=== PATIENT | male | born 1960 | race Caucasian/White ===

== ENCOUNTER 2016-09-02 15:03 | Day surgery (SDC) | payer OTHER ==
[2016-08-24 12:11] LABS: % IMMATURE GRANULYOCYTES 0.4 % (0.0-1.1); ABSOLUTE IMMATURE GRANULOCYTES 0.02 10^3/uL (0.00-0.10); ADD DIFF? NO; ADD MORPH? NO; ADD SCAN? NO; ATYPICAL LYMPHOCYTE FLAG 10 (0-99); FRAGMENT RBC FLAG 0 (0-99); HEMATOCRIT 43.7 % (40.0-51.0); LEFT SHIFT FLG 0 (0-99); LIPEMIA HEMOLYSIS FLAG 90 (0-99); MEAN CELL HEMOGLOBIN 30.8 pg (27.9-34.1); MEAN CELL HEMOGLOBIN CONCENTR. 34.3 g/dL (32.4-36.7); MEAN CELL VOLUME 89.7 fL (81.5-99.8); MEAN PLATELET VOLUME 9.9 fL (8.7-11.7); PLATELET CLUMPS FLAG 0 (0-99); PLATELET COUNT 278 10^3/uL (150-400); RED BLOOD CELL COUNT 4.87 10^6/uL (4.40-6.38)
--- NOTE | 2016-09-02 10:30 | DX ---
Intraoperative fluoroscopy. 09/02/2016 History: Cervical spine surgery. Discussion: 7.4 seconds of fluoroscopy time were utilized by Dr. Srikanth Prescott during cervical spine janet yonathan. Radiographs obtained during the procedure demonstrate performance of diskectomy and interbody fusion with ventral plate placement at C3-C4, anatomic alignment. Prior fusion of C4-C6.. Impression: Intraoperative fluoroscopy during cervical spine surgery.
[2016-09-02 11:38] VITALS: BP 118/82; RESP 9; O2SAT 91
--- NOTE | 2016-09-02 12:25 | GOP ---
[f rep st] OPERATIVE REPORT DATE OF OPERATION: 09/02/2016 SURGEON: Adolph Prescott MD NEUROSURGEON: Adolph Prescott MD EMULSION COATER: ALBERT Canseco. PREOPERATIVE DIAGNOSIS: 1. 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 2. Prior cervical fusion at C4-C5 and C5-C6. POSTOPERATIVE DIAGNOSIS: 1. 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 2. Prior cervical fusion at C4-C5 and C5-C6. PROCEDURE PERFORMED: 1. Anterior removal of instrumentation at C4, anterior cervical diskectomy with decompression and arthrodesis C3-C4 (11225). 2. Placement of nonanchored biomechanical intervertebral device C3-C4 (14336). 3. Same incision bone graft harvest, anterior cervical instrumentation C3-C4 ( 78334). 4. Microscope, fluoroscopy. INSTRUMENTATION: Lanx anterior cervical plating system, generation 1. The screws at C4 were removed and the plating placed at this time was a [employer]onic ZEVO plate, a 19 mm plate with 3.5 x 15 mm screws and a PEEK intervertebral device. It was an anatomic PTC cage. FINDINGS: ESTIMATED BLOOD LOSS: 25 cc. INDICATIONS: The patient is a 56-year-old, who about almost a decade ago underwent successful anterior cervical diskectomy and fusion at C4-C5 and C5-C6 because of severe spinal stenosis and cord compression. He did relatively well from this and has now over the last several months developed increasing discomfort and MRI demonstrated adjacent segment disease with severe stenosis at C3-4 above the prior surgery. There was no evidence of complication from this prior surgery and he appeared to be fused on plain images, but no CT scan was done, we discussed this with him. He understood there was a tiny chance that he actually has a stable pseudoarthrosis at the site of his prior surgery, but his symptoms almost certainly were related to adjacent segment disease, and I suggested adjacent segment surgery. He was evaluated by ENT and had no issues with his vocal cords. He also had been suffering an unknown possible cognitive decline. The etiology of which was unclear. This is unrelated to his cervical problems and we thought that cervical surgery might help him be more comfortable. The risk of further adjacent segment disease, pseudoarthrosis , soft gel injury, carotid injury, recurrent laryngeal nerve injury and dysphagia were all discussed. He understood these risks. He wanted to proceed. DESCRIPTION OF PROCEDURE: Patient was taken to the operating room and placed in the supine position. General anesthesia was begun. A large longitudinal shoulder roll was placed. His arms were tucked at his side. His neck was kept neutral. Occiput was extended. He was sterilely prepped and draped. We made a left-sided transverse incision in the rostral neck crease on the left-hand side. The subcutaneous tissue was dissected using Bovie cautery through the platysma, and a combination of sharp and blunt dissection was made medial to the sternocleidomastoid and lateral to the strap muscles, down to the prevertebral space. The prior plate was localized. We removed the top 2 screws from the plate without difficulty. There was no loosening of the plate whatsoever. There was some bony overgrowth over the rostral aspect of the plate itself. We placed a distraction pin in the prior screw hole and then a distraction pin at C3-C4, distracted at C3-C4. We dissected the longus colli muscles off the spine at C3-C4 and introduced the scope and under the scope we removed the C3-4 disk and the cartilaginous endplates. We drilled and harvested subchondral bone for autologous grafting purposes, opened the posterior longitudinal ligament and decompressed the thecal sac and the neural foramina bilaterally. Decompression was obtained. We chose a 7 mm anatomic PEEK cage, with titanium coating and it was packed with bony autograft and inserted at C3-C4. A nice fit was obtained. We then removed our distraction pins, drilled off some of the bony osteophytes rostral to the prior plate and our new plate was going to fit nicely underneath the old plate with hyper angulated screws as designed by the company. We placed a single screw at C4, a single screw at C3 and shot an x -ray. We were happy with all of the implants. We placed the 2 remaining screws and locked them according to company specification. We achieved meticulous hemostasis. We placed Marcaine with epinephrine in the prevertebral space and then closed the incision in multiple layers using Vicryl sutures. A running PDS was placed in the skin itself. The patient was reversed from anesthesia, extubated, and transferred to the recovery room in stable condition. There were no complications. COMPLICATIONS: None. /[id number]/MODL MTDD
[~2016-09-02 15:03] MED LIST: ACETAMINOPHEN 325 MG TAB ONE; ACETAMINOPHEN 325 MG TAB PO ONE; BACITRACIN 50,000 UNITS/10 ML SYR IRR ONE; BUPIVACAINE/EPI 0.25% 30 ML SDV ONE; DIAZEPAM 10 MG/2 ML SYR ONE; GLYCOPYRROLATE 0.2 MG/1 ML VIAL ONE; LIDOCAINE 1% 5 ML SDV ID PRN; LIDOCAINE 1% 5 ML SDV ONE; LIDOCAINE 2% 5 ML SDV ONE; LR 1,000 ML IV ONE; MIDAZOLAM 2 MG/2 ML VIAL ONE; ONDANSETRON 4 MG/2 ML VIAL ONE; PROPOFOL 200 MG/20 ML VIAL ONE; PROPOFOL/EMULSION 500 MG/50 ML BOTTLE IV ONE; ROCURONIUM 50 MG/5 ML VIAL ONE; THROMBIN (RECOMBINANT) 5,000 UNIT VIAL TP ONE; ceFAZolin 2 GM/DEXTROSE 100 ML IV ONE; fentaNYL 100 MCG/2 ML INJ ONE
== END 2016-09-02 15:05 | disposition home or self-care (01) ==
LOC: FSGY 15:03
PROVIDERS: ATTEND Neurological Surgery
DX: M47.12 Other spondylosis with myelopathy, cervical region (principal); Z98.1 Arthrodesis status
CPT/HCPCS: C1713; J0690; J2250; J2405; J2704; J3010

== ENCOUNTER → 2016-10-27 | Outpatient (CLI) | payer OTHER | LOC: FIMAGING 09:54 | PROVIDERS: ATTEND Physician Assistant | DX: Z09 Encounter for follow-up examination after completed treatment for conditions other than malignant neoplasm (principal); M47.12 Other spondylosis with myelopathy, cervical region; M48.02 Spinal stenosis, cervical region; Z98.1 Arthrodesis status ==

== ENCOUNTER → 2017-02-07 | Outpatient (CLI) | payer OTHER | LOC: FIMAGING 10:58 | PROVIDERS: ATTEND Nurse Practitioner | DX: Z09 Encounter for follow-up examination after completed treatment for conditions other than malignant neoplasm (principal); Z98.1 Arthrodesis status; M50.323 Other cervical disc degeneration at C6-C7 level; M48.02 Spinal stenosis, cervical region ==

== ENCOUNTER → 2017-08-09 | Outpatient (CLI) | payer OTHER | LOC: FIMAGING 07:34 | PROVIDERS: ATTEND Physician Assistant | DX: Z98.1 Arthrodesis status (principal) ==

== ENCOUNTER → 2018-06-20 | Outpatient (CLI) | payer OTHER | LOC: FIMAGING 14:51 | PROVIDERS: ATTEND Physician Assistant | DX: Z09 Encounter for follow-up examination after completed treatment for conditions other than malignant neoplasm (principal); Z98.1 Arthrodesis status; M50.323 Other cervical disc degeneration at C6-C7 level ==

== ENCOUNTER 2018-06-29 13:01 | Day surgery (SDC) | payer OTHER ==
[~2018-06-29 13:01] MED LIST changes: -ACETAMINOPHEN 325 MG TAB ONE; -ACETAMINOPHEN 325 MG TAB PO ONE; -BACITRACIN 50,000 UNITS/10 ML SYR IRR ONE; -BUPIVACAINE/EPI 0.25% 30 ML SDV ONE; -DIAZEPAM 10 MG/2 ML SYR ONE; -GLYCOPYRROLATE 0.2 MG/1 ML VIAL ONE; -LIDOCAINE 1% 5 ML SDV ID PRN; -LIDOCAINE 1% 5 ML SDV ONE; -LIDOCAINE 2% 5 ML SDV ONE; -LR 1,000 ML IV ONE; -MIDAZOLAM 2 MG/2 ML VIAL ONE; -ONDANSETRON 4 MG/2 ML VIAL ONE; -PROPOFOL 200 MG/20 ML VIAL ONE; -PROPOFOL/EMULSION 500 MG/50 ML BOTTLE IV ONE; -ROCURONIUM 50 MG/5 ML VIAL ONE; +ROPIVACAINE 0.2% 80 MG, EPINEPHrine 0.2 MG, KETOROLAC TROMETHAMINE 30 MG, morphINE 10 M... IU ONE; -THROMBIN (RECOMBINANT) 5,000 UNIT VIAL TP ONE; -ceFAZolin 2 GM/DEXTROSE 100 ML IV ONE; -fentaNYL 100 MCG/2 ML INJ ONE
[2018-06-29] MEDS ORDERED: LR 1,000 ML IV SCH (13:09)
[2018-06-29] MEDS ORDERED: ACETAMINOPHEN 500 MG TAB PO ONE (13:09)
[2018-06-29] MEDS ORDERED: ceFAZolin 2 GM/DEXTROSE 100 ML IV ONE (13:09)
[2018-06-29] MEDS ORDERED: LR 1,000 ML IV ONE (13:11)
[2018-06-29] MEDS ORDERED: BUPIVACAINE/EPI 0.25% 30 ML SDV ONE (13:44)
[2018-06-29] MEDS ORDERED: EPINEPHrine 30 MG/30 ML MDV (0.1 MG/0.1 ML) ONE (13:44)
--- NOTE | 2018-06-29 14:30 | PDGENHP ---
History and Physical - Chief Complaint left shoulder pain for over a year. - History of Present Illness Pain is present with overhead activities and at night. History Information - Allergies/Home Medication List Allergies/Adverse Reactions: No Known Allergies Allergy (Verified 06/28/18 15:36) Home Medications: Fluoxetine HCl [Prozac 40 mg] 08/06/16 [Last Taken 06/29/18] Ibuprofen [Motrin (*)] 08/06/16 [Last Taken 06/22/18] Pramipexole Di-HCl [Mirapex 0.125 mg (*)] 08/06/16 [Last Taken 06/29/18 0900] Herbals/Supplements -Info Only 06/28/18 [Last Taken 06/28/18] I have personally reviewed and updated: family history, medical history, social history, surgical history - Surgical History Additional surgical history: cervical spine fusion - Social History Smoking Status: Never smoked Alcohol Use: Occasionally Drug Use: None Review of Systems Review of Systems: ROS: 10pt was reviewed & negative except for what was stated in HPI & below Constitutional: Reports: no symptoms Cardiac: Reports: no symptoms Respiratory: Reports: no symptoms Gastrointestinal: Reports: no symptoms Genitourinary: Reports: no symptoms Muscolosketal: Reports: joint pain, muscle pain Skin: Reports: no symptoms Physical Exam Physical Exam: Temp Pulse Resp BP Pulse Ox 36.7 C 51 L 16 113/76 96 06/29/18 13:32 06/29/18 13:32 06/29/18 13:32 06/29/18 13:32 06/29/18 13:32 Constitutional: no apparent distress Eyes: PERRL Ears, Nose, Mouth, Throat: moist mucous membranes Cardiovascular: regular rate and rhythym, no murmur, rub, or gallop Peripheral Pulses: 2+: dorsalis-pedis (R), dorsalis-pedis (L) Respiratory: no respiratory distress, clear to auscultation Gastrointestinal: normoactive bowel sounds, soft, non-tender abdomen Genitourinary: no bladder fullness Skin: warm, normal color, no rashes or abrasions Musculoskeletal: joint tenderness, pain with ROM Neurologic: AAOx3 Psychiatric: interacting appropriately, not anxious Lymph, Heme, Immunologic: no cervical LAD Assessment & Plan Assessment: left shoulder impingement, AC joint arthritis. Plan: Left shoulder arthroscopy, SAD, DCR, rotator cuff repair, possibly open.
[2018-06-29] MEDS ORDERED: MIDAZOLAM 2 MG/2 ML VIAL ONE (14:47)
[2018-06-29] MEDS ORDERED: MIDAZOLAM 2 MG/2 ML VIAL IVP ONE (14:48)
[2018-06-29] MEDS ORDERED: LR 500 ML IV PRN (14:49)
[2018-06-29] MEDS ORDERED: fentaNYL 100 MCG/2 ML INJ IVP PRN (14:49)
[2018-06-29] MEDS ORDERED: HYDROmorphONE/DILAUDID 2 MG/ML INJ IVP PRN (14:49)
[2018-06-29] MEDS ORDERED: ONDANSETRON 4 MG/2 ML VIAL IVP PRN (14:49)
[2018-06-29] MEDS ORDERED: PROMETHAZINE HCL 25 MG/ML INJ IVP PRN (14:49)
[2018-06-29] MEDS ORDERED: ALBUTEROL 3 ML DEYVIAL IH PRN (14:49)
[2018-06-29] MEDS ORDERED: NS 500 ML IV PRN (14:49)
[2018-06-29] MEDS ORDERED: DEXAMETHASONE 4 MG/ML VIAL IVP PRN (14:49)
[2018-06-29] MEDS ORDERED: NALOXONE HCL 0.4 MG/ML INJ IVP PRN (14:49)
--- NOTE | 2018-06-29 14:49 | PDANEPAE ---
ANE History of Present Illness here for L shoulder RTC ANE Past Medical History - Cardiovascular History Hx Hypertension: No Hx Arrhythmias: No Hx Chest Pain: No Hx Coronary Artery / Peripheral Vascular Disease: No Hx CHF / Valvular Disease: No Hx Palpitations: No - Pulmonary History Hx COPD: No Hx Asthma/Reactive Airway Disease: No Hx Recent Upper Respiratory Infection: No Hx Oxygen in Use at Home: No Hx Sleep Apnea: No Sleep Apnea Screening Result - Last Documented: Negative - Neurologic History Hx Cerebrovascular Accident: No Hx Seizures: No Hx Dementia: No Neurologic History Comment: HX OF CERVICAL FUSIONS X2 - Endocrine History Hx Diabetes: No - Renal History Hx Renal Disorders: No - Liver History Hx Hepatic Disorders: No - Neurological & Psychiatric Hx Hx Neurological and Psychiatric Disorders: Yes Neurological / Psychiatric History Comment: DEPRESSION - Cancer History Hx Cancer: No - Congenital Disorder History Hx Congenital Disorders: No - GI History Hx Gastrointestinal Disorders: Yes Gastrointestinal History Comment: OCC REFLUX R/T WEIGHT - Other Health History Other Health History: WEARS GLASSES - Chronic Pain History Chronic Pain: Yes (LEFT SHOULDER, NECK) - Surgical History Prior Surgeries: 09/02/16 C3-4 ADCF WITH ROSEMARY. CERVICAL FUSION 2006. TONSILLECTOMY CHILD ANE Review of Systems Review of systems is: negative Review of Systems: - Exercise capacity Exercise capacity: >=4 METS METS (RN): 6 METS ANE Patient History - Allergies Allergies/Adverse Reactions: No Known Allergies Allergy (Verified 06/28/18 15:36) - Home Medications Home medications: home medication list seen and reviewed Home Medications: Fluoxetine HCl [Prozac 40 mg] 08/06/16 [Last Taken 06/29/18] Ibuprofen [Motrin (*)] 08/06/16 [Last Taken 06/22/18] Pramipexole Di-HCl [Mirapex 0.125 mg (*)] 08/06/16 [Last Taken 06/29/18 0900] Herbals/Supplements -Info Only 06/28/18 [Last Taken 06/28/18] - NPO status NPO Status: no food or drink >8 hours NPO Since - Liquids (Date): 06/29/18 NPO Since - Liquids (Time): 05:30 NPO Since - Solids (Date): 06/29/18 NPO Since - Solids (Time): 05:30 - Smoking Hx Smoking Status: Never smoked - Alcohol Use Alcohol Use: Occasionally - Family Anes Hx Family Hx Anesthesia Complications: NONE ANE Labs/Vital Signs - Vital Signs Vital Signs: reviewed preoperatively; see RN documention for details Blood Pressure: 113/76 Heart Rate: 51 Respiratory Rate: 16 O2 Sat (%): 96 Height: 175.26 cm Weight: 77.111 kg ANE Physical Exam - Airway Neck exam: FROM Mallampati Score: Class 1 - Pulmonary Pulmonary: no respiratory distress - Cardiovascular Cardiovascular: regular rate and rhythym - ASA Status ASA Status: II ANE Anesthesia Plan Anesthesia Plan: GA w LMA
[2018-06-29] MEDS ORDERED: fentaNYL 100 MCG/2 ML INJ ONE ×2 (14:53→15:38)
[2018-06-29] MEDS ORDERED: PROPOFOL/EMULSION 500 MG/50 ML BOTTLE IV ONE ×2 (14:55→16:18)
--- NOTE | 2018-06-29 18:19 | POSTOPPROG ---
Post Op Note Date of Operation: 06/30/18 Surgeon: Bonita Manjarrez Carpet Repairer: Loki Anesthesia: GET(General Endotracheal) Pre-op Diagnosis: Left shoulder acromioclavicular arthritis, impingement, rotator cuff tear Post-op Diagnosis: Left shoulder AC joint arthritis, impingement, rotator cuff tear Procedure: Left shoudler arthroscopy,SAD,DCR,RCR. Inf/Abcess present in the surg proc area at time of surgery?: No Depth: Deep Incisional (Fascial) EBL: Minimal Complications: None
[2018-06-29 19:49] VITALS: BP 112/77
--- NOTE | 2018-06-30 05:40 | GOP ---
DATE OF OPERATION: 06/29/2018 SURGEON: Candelario Marques MD TEST ENGINEERING INTERN: Bonita Manjarrez PA-C Use of a surgical nurse practitioner was required to hold the arthroscope while the repair was performed, as w ell as to assist in positioning. ANESTHESIA: General. PREOPERATIVE DIAGNOSIS: 1. Subacromial impingement syndrome, left shoulder. 2. Acromioclavicular joint osteoarthritis, left shoulder. 3. Full thickness rotator cuff tear, left shoulder. POSTOPERATIVE DIAGNOSIS: 1. Subacromial impingement syndrome, left shoulder. 2. Acromioclavicular joint osteoarthritis, left shoulder. 3. Full thickness rotator cuff tear, left shoulder. PROCEDURE PERFORMED: 1. Arthroscopy, left shoulder, with subacromial decompression. 2. Arthroscopic distal clavicle resection, left shoulder. 3. Arthroscopic rotator cuff repair, left shoulder. FINDINGS: INDICATIONS: This is a 58-year-old male with chronic pain and weakness secondary to the above diagno ses, being admitted for surgical care. We have discussed risks, benefits and limitations of the proc edure preoperatively with the patient. DESCRIPTION OF PROCEDURE: After an adequate general anesthetic was obtained and IV antibiotics were administered, the patient was placed in the right lateral decubitus position on the benites bag with an axillary roll to the left shoulder, was hung with 15 pounds of overhead traction and was prepped and draped in the usual sterile fashion. A standard posterior arthroscopic portal was established with a 15 blade. A 4 mm 30 degree arthroscope was introduced through the posterior portal into the glenohu meral joint and a systematic examination of the joint was carried out. An anterior portal was establ ished and cannulized in the routine fashion. The articular surfaces were normal. The glenoid labrum was normal circumferentially. The subscapular is tendon was normal. The biceps tendon was normal. There was a full thickness tear in the anterior aspect of the supraspinatus tendon off the greater tu berosity. The arthroscope was introduced in the subacromial space. A limited bursectomy was carried out. There was evidence of impingement with hypertrophy and fraying of the coracoacromial ligament. This was d ivided off the anterior acromion using electrocautery. The anterior hook of the acromion was flatten ed from the anterolateral corner to the AC joint. This was completed with arthroscopic visualization lateral and instrumentation posteriorly. The distal clavicle was severely arthritic, approximately 10 mm of distal clavicle was now resected u sing a motorized bur. This was completed with instrumentation anteriorly. The rotator cuff tear was inspected. This was a small to medium size tear involving the supraspinatu s tendon anteriorly off the greater tuberosity. The tuberosity was prepared to fresh bleeding bone us ing a shaver. The tendon was gently mobilized. A 5.5 mm triple loaded Parcus PEEK suture anchor was placed in the greater tuberosity. Three #2 [place] us Braid sutures were now passed through the rotator cuff tendon using a combination of simple and ho rizontal mattress configurations. These were now tied securely, reapproximating the tendon anatomical ly against the tuberosity. We elected to use a lateral SutureBridge technique. Each of the previous independent limbs from the p reviously tied sutures were now paced through 2 separate Parcus 4.5 mm knotless suture anchors more l ateral on the proximal humerus obtaining an excellent and stable construct. There was no further imp ingement. The construct was stable through a range of motion. The arthroscopic instruments were removed. The portals were closed using interrupted 3-0 nylon sutur es. A cocktail comprised of 80 mg of 0.2 ropivacaine with epinephrine plus 10 mg of morphine plus 30 mg of ketorolac was now injected. Sterile dressings were applied followed by a shoulder immobilizer. There were no complications. The patient tolerated the procedure well and returned to the recovery r oom in stable condition. /[id number]/MODL
== END 2018-06-29 20:19 | disposition home or self-care (01) ==
LOC: FSGY 13:01
PROVIDERS: ATTEND Orthopaedic Surgery Sports Medicine
PROC: 0PBB4ZZ Excision of Left Clavicle, Percutaneous Endoscopic Approach (ICD-10-PCS; principal; 2018-06-29 14:30)
PROC: 0MN24ZZ Release Left Shoulder Bursa and Ligament, Percutaneous Endoscopic Approach (ICD-10-PCS; principal; 2018-06-29 14:30)
PROC: 0LQ24ZZ Repair Left Shoulder Tendon, Percutaneous Endoscopic Approach (ICD-10-PCS; principal; 2018-06-29 14:30)
DX: M25.812 Other specified joint disorders, left shoulder (principal); M19.012 Primary osteoarthritis, left shoulder; M75.122 Complete rotator cuff tear or rupture of left shoulder, not specified as traumatic; M54.2 Cervicalgia; Z98.1 Arthrodesis status
CPT/HCPCS: C1713; J0171; J0690; J1885; J2250; J2270; J2704; J2795; J3010